=== PATIENT | female | born 1985 | race Caucasian/White ===

== ENCOUNTER → 2017-05-14 | Outpatient (CLI) | payer BC ==
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
== END | disposition home or self-care (01) ==
LOC: RADCTMAIN 15:08
PROVIDERS: ATTEND Family Medicine
DX: M50.30 Other cervical disc degeneration, unspecified cervical region (principal)
CPT/HCPCS: 72125

== ENCOUNTER → 2017-06-02 | Outpatient (CLI) | payer BC ==
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
== END | disposition home or self-care (01) ==
LOC: RADMRIMAIN 18:41
PROVIDERS: ATTEND Family Medicine
DX: M50.222 Other cervical disc displacement at C5-C6 level (principal); M50.322 Other cervical disc degeneration at C5-C6 level; M53.82 Other specified dorsopathies, cervical region; S46.812D Strain of other muscles, fascia and tendons at shoulder and upper arm level, left arm, subsequent encounter
CPT/HCPCS: 72141

== ENCOUNTER 2017-08-18 18:08 | Emergency (ER) | payer BC ==
[2017-08-18 18:47] VITALS: RESP 18
--- NOTE | 2017-08-18 19:38 | ED ---
General Adult HPI - General Chief complaint: Recheck/Abnormal Lab/Rx Stated complaint: POST OP PAIN Time Seen by Provider: 08/18/17 19:11 Source: patient Mode of arrival: ambulatory Limitations: no limitations - History of Present Illness Initial comments: 32-year-old female patient presents to the emergency department today for evaluation of pain postoperatively. Patient states on Wednesday she had a Bartholin's cyst removed from the right side. Patient states that since the surgery she has been having increased pain especially with walking or movement. Patient states that she has had some mild bloody drainage but denies any evidence of pus. Patient denies any fevers, chills, or swelling to the area. States that she has been taking tramadol and applying ice however it is not helping. Patient denies any recent rash, shortness breath, chest pain, abdominal pain, nausea, vomiting, diarrhea, constipation, back pain, numbness, tingling, dizziness, weakness, hematuria, dysuria, urinary urgency, urinary frequency, headache, visual changes, or any other complaints. - Related Data Home Medications Medication Instructions Recorded Confirmed Gabapentin [Neurontin] 300 mg PO DAILY PRN 08/18/17 08/18/17 Ibuprofen [Motrin] 800 mg PO TID PRN 08/18/17 08/18/17 traMADol HCL [Ultram] 50 mg PO BID PRN 08/18/17 08/18/17 Previous Rx's Medication Instructions Recorded Hydrocodone/Acetaminophen [Mcconnell 1 tab PO Q6HR PRN #12 tab 08/18/17 5-325] Allergies Allergy/AdvReac Type Severity Reaction Status Date / Time No Known Allergies Allergy Verified 08/18/17 19:50 Review of Systems ROS Statement: Those systems with pertinent positive or pertinent negative responses have been documented in the HPI. ROS Other: All systems not noted in ROS Statement are negative. Past Medical History Past Medical History: No Reported History History of Any Multi-Drug Resistant Organisms: None Reported Additional Past Surgical History / Comment(s): Herniated disc, two bulging discs , migraines, vaginal cyst removed Past Psychological History: Anxiety, Depression Smoking Status: Never smoker Past Alcohol Use History: None Reported Past Drug Use History: None Reported General Exam Limitations: no limitations General appearance: alert, in no apparent distress, other (Physical well- developed, well-nourished, nontoxic-appearing adult female patient in no acute distress. Vital signs upon presentation are temperature 98.9F, pulse 96, respirations 18, blood pressure 146/63, pulse ox 99% on room air.) Eye exam: Present: normal appearance, PERRL, EOMI. Absent: scleral icterus, conjunctival injection, periorbital swelling ENT exam: Present: normal exam, normal oropharynx, mucous membranes moist Respiratory exam: Present: normal lung sounds bilaterally. Absent: respiratory distress, wheezes, rales, rhonchi, stridor Cardiovascular Exam: Present: regular rate, normal rhythm, normal heart sounds. Absent: systolic murmur, diastolic murmur, rubs, gallop, clicks External exam: Present: other (Patient has well approximated surgical incision on the labia minora. No evidence of swelling, erythema, or drainage of pus.) Neurological exam: Present: alert, oriented X3, CN II-XII intact Psychiatric exam: Present: normal affect, normal mood Skin exam: Present: warm, dry, intact, normal color. Absent: rash Course Vital Signs 08/18/17 08/18/17 18:44 19:55 Temperature 98.9 F 97.8 F Pulse Rate 96 79 Respiratory 18 18 Rate Blood Pressure 146/63 109/54 O2 Sat by Pulse 99 99 Oximetry Medical Decision Making - Medical Decision Making 32-year-old female patient presented to the emergency department today for evaluation of postoperative pain. Surgical incision sites to the right labia minora appears well approximated with no evidence of infection. Patient has no fever. Vital signs are stable. We'll provide her with Mcconnell stronger pain medication help control her symptoms. She is educated to continue applying ice. She is instructed to follow-up with her surgeon as soon as possible. Return parameters discussed in detail. She verbalizes understanding and agrees with this plan. Disposition Clinical Impression: Post-op pain Disposition: HOME SELF-CARE Condition: Good Instructions: Bartholin Cyst (ED) Additional Instructions: Continue applying ice 20 minutes at a time at least 4 times daily. Follow-up with Dr. Anthony as soon as possible. Take pain medicine as directed. Return here immediately for any new, worsening, or concerning symptoms. Prescriptions: Hydrocodone/Acetaminophen [Mcconnell 5-325] 1 tab PO Q6HR PRN #12 tab PRN Reason: Pain Is patient prescribed a controlled substance at d/c from ED?: Yes When asked, does pt state using other controlled substances?: Yes Referrals: Key Atkinson MD [Primary Care Provider] - 1-2 days Shawn Anthony DO [REFERRING] - 1-2 days Time of Disposition: 19:38
[2017-08-18 19:56] VITALS: BP 109/54; PULSE 79; TEMP 97.8
== END 2017-08-18 19:55 | disposition home or self-care (01) ==
LOC: EC 18:08
DX: G89.18 Other acute postprocedural pain (principal)
CPT/HCPCS: 99283

== ENCOUNTER → 2020-03-05 | Outpatient (CLI) | payer BC ==
--- NOTE | 2020-03-05 16:12 | CT ---
EXAMINATION TYPE: CT brain wo con DATE OF EXAM: 03/05/2020 COMPARISON: None HISTORY: hearing loss to left ear CT DLP: 943.[address] of the brain was performed. The ventricles, basal cisterns and sulci overlying the cerebral convexities demonstrate a normal appe arance. There is no evidence for intracranial hemorrhage or sulcal effacement. No mass effects are seen. Osseous calvarium is intact. If symptoms persist consider MRI as clinically warranted. IMPRESSION: 1. No acute intracranial process is seen at this time.
== END | disposition home or self-care (01) ==
LOC: RADCTMAIN 07:32
PROVIDERS: ATTEND Family Medicine
DX: H92.02 Otalgia, left ear (principal); G89.29 Other chronic pain; H91.92 Unspecified hearing loss, left ear
CPT/HCPCS: 70450

== ENCOUNTER → 2020-04-03 | Outpatient (CLI) | payer BC ==
--- NOTE | 2020-04-07 13:05 | MR ---
EXAMINATION TYPE: MR brain and iac wo/w con DATE OF EXAM: 04/03/2020 COMPARISON: CT brain 03/05/2020 HISTORY: Decreased hearing left ear, otalgia TECHNIQUE: Multiplanar, multisequence images of the brain and brainstem, internal auditory canals is performed w ithout and with IV contrast, utilizing 8.5 mL intravenous Gadavist . FINDINGS: Diffusion weighted images demonstrate no evidence of a recent infarct or other diffusion ab normality. There is no extra-axial fluid collection or significant white matter signal abnormality s ome scattered hyperintensities on inversion recovery T2-weighted sequences within the frontal lobes a re noted measuring only 3 to 4 mm, 3-5 lesions are present. The ventricular system and cisternal [facility] are normal in size and appearance. The brain volume is age appropriate. Midline structures demonstrate normal morphology. The craniocervical junction appears within normal limits. Post contrast images demonstrate no abnormal enhancement. The dural venous sinuses appear pa tent. The visualized sinuses are remarkable for some mucoperiosteal thickening in the maxillary sinus es and the globes are intact. IMPRESSION: Nonspecific white matter demyelination of questionable clinical significance, consider hy pertension, migraine headaches, vasculitis, Lyme disease, multiple sclerosis felt to be less likely. No cerebellopontine angle mass or internal auditory canal mass. Mild sinus disease.
== END | disposition home or self-care (01) ==
LOC: RADMRIMAIN 17:08
PROVIDERS: ATTEND Family Medicine
DX: G37.8 Other specified demyelinating diseases of central nervous system (principal); J32.9 Chronic sinusitis, unspecified
CPT/HCPCS: 70553; A9585

== ENCOUNTER → 2020-05-22 | Outpatient (CLI) | payer BC ==
[2020-05-22 14:08] LABS: Basophils # (A) 0.05 X 10*3/uL (0.00-0.10); Basophils % (A) 0.6 %; Eosinophils # (A) 0.17 X 10*3/uL (0.04-0.35); HCT 41.8 % (37.2-46.3); HGB 13.5 g/dL (12.0-15.0); Lymphocytes % (A) 34.3 %; MCH 30.7 pg (27.0-32.0); MCHC 32.3 g/dL (32.0-37.0); Mean Platelet Volume 11.8 fL (9.5-12.2); Monocytes # (A) 0.67 X 10*3/uL (0.20-1.00); Monocytes % (A) 7.9 %; Neutrophils # (A) 4.65 X 10*3/uL (1.80-7.70); Neutrophils % (A) 55.1 %; Platelet Count 226 X 10*3/uL (140-440); RDW 12.3 % (11.5-14.5); WBC 8.45 X 10*3/uL (4.50-10.00)
[2020-05-22 14:58] LABS: ALT 28 U/L (8-44); AST 19 U/L (13-35); African American GFR (CKD) 109.9 (60.0-200.0); Albumin/Globulin Ratio 1.91 (1.60-3.17); Alkaline Phosphatase 77 U/L (41-126); BUN/Creat Ratio 16.25 Ratio (12.00-20.00); C Reactive Protein <0.4 mg/dL (0.0-0.8); Calcium 8.8 mg/dL (8.7-10.3); Carbon Dioxide 30.3 mmol/L (21.6-31.8); Chloride 106 mmol/L (96-109); Globulin 2.3 g/dL (1.6-3.3); Glucose 82 mg/dL (70-110); Non-African American GFR(CKD) 94.8 (60.0-200.0); Potassium 4.2 mmol/L (3.5-5.5); Sodium 141 mmol/L (135-145); Total Bilirubin 0.3 mg/dL (0.3-1.2); Total Protein 6.7 g/dL (6.2-8.2)
[2020-05-22 17:58] LABS: Erythrocyte Sedimentation Rate 11 mm/Hr (0-20)
[2020-05-22 22:39] LABS: Total Protein,CSF 30 mg/dL (12-60)
[2020-05-22 23:22] LABS: Appearance,CSF Clear; CSF Tube Number 4; CSF Tube Volume 4; Nucleated Cells, CSF 0 u/L (0-5); Red Blood Cell,CSF 0 u/L (0-10)
[2020-05-24 11:58] LABS: IgG - CSF 1.7 mg/dL (0.0 - 3.4); IgG/Albumin Index (CSF) 0.53 (0.00 - 0.77)
== END | disposition home or self-care (01) ==
LOC: LABWHC1 08:03
PROVIDERS: ATTEND Psychiatry & Neurology Pain Medicine
DX: H53.8 Other visual disturbances (principal); R90.82 White matter disease, unspecified; R51.9 Headache, unspecified; Z51.81 Encounter for therapeutic drug level monitoring; Z79.899 Other long term (current) drug therapy
CPT/HCPCS: 36415; 80053; 82040; 82042; 82784; 83873; 83916; 84157; 85025; 85652; 86140; 87801; 89050

== ENCOUNTER → 2021-03-24 | Outpatient (CLI) | payer BC ==
[2021-03-25 05:21] LABS: Calcium 9.5 mg/dL (8.7-10.3)
== END | disposition home or self-care (01) ==
LOC: LABWHC1 13:04
PROVIDERS: ATTEND Psychiatry & Neurology Neurology
DX: E55.9 Vitamin D deficiency, unspecified (principal)
CPT/HCPCS: 36415; 82306; 82310; 83970

== ENCOUNTER → 2021-08-27 | Outpatient (CLI) | payer BC, OTHER ==
--- NOTE | 2021-08-27 16:38 | XR ---
EXAMINATION TYPE: XR thoracic spine 2V DATE OF EXAM: 08/27/2021 COMPARISON: None HISTORY: Back pain acute TECHNIQUE: 3 view thoracic spine FINDINGS: There are 12 thoracic type vertebral bodies. The pedicles are intact. Disc heights are pres erved. Vertebral body heights are preserved. Scoliosis in the upper thoracic spine with convexity to the left centered at approximately T2-3. Incidental note is made of a calcification in left upper quadrant may be a splenic artery aneurysm me asuring 2.5 cm. IMPRESSION: 1. Scoliosis upper thoracic spine. 2. Suspected 2.5 cm splenic artery aneurysm.
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
== END | disposition home or self-care (01) ==
LOC: RADXRMAIN 10:26
PROVIDERS: ATTEND Family Medicine
DX: M41.84 Other forms of scoliosis, thoracic region (principal); M54.2 Cervicalgia; M54.50 Low back pain, unspecified; V89.0XXD Person injured in unspecified motor-vehicle accident, nontraffic, subsequent encounter
CPT/HCPCS: 72050; 72070; 72110

== ENCOUNTER → 2021-09-24 | Outpatient (CLI) | payer BC ==
--- NOTE | 2021-09-24 10:42 | CT ---
EXAMINATION TYPE: CT abdomen wo con DATE OF EXAM: 09/24/2021 COMPARISON: X-ray dated 08/27/2021 HISTORY: Aneurysm of other specified arteries CT DLP: 331.4 mGycm Automated exposure control for dose reduction was used. TECHNIQUE: Helical acquisition of images was performed from the lung bases through the top of iliac crest to include entire abdomen. CONTRAST: Performed without Oral Contrast and without IV contrast. FINDINGS: LUNG BASES: Left basal subsegmental pulmonary atelectasis. LIVER/GB: Arterial segment 4A cyst measuring 2.6 cm. Another cyst is seen more inferiorly, suboptimal ly assessed by this nonenhanced CT scan. Grossly unremarkable gallbladder. PANCREAS: No significant abnormality is seen. SPLEEN: Marginally calcified cyst measuring 2.6 cm in the upper pole of the spleen, likely representi ng the abnormality identified on the previous x-ray. No other definite splenic lesion by this unenhan jody CT scan. ADRENALS: No significant abnormality is seen. KIDNEYS: 3 tiny calculi seen at the lower half of the left kidney measuring up to 3 mm. Unremarkable kidneys otherwise. BOWEL: Unremarkable stomach, duodenum and visualized small and large bowel. LYMPH NODES: No pathologically enlarged abdominal lymph nodes. OSSEOUS STRUCTURES: No significant abnormality is seen. FREE AIR: No free air is visualized. OTHER: Fat-containing umbilical hernia. IMPRESSION: Marginally calcified cyst at the superior aspect of the spleen as described above, incompletely blossom cterized by this unenhanced CT scan. Marginally calcified intrasplenic aneurysm is unlikely. Recommen d further enhanced/CTA of the spleen versus ultrasound confirmation. Other incidental findings as jean claude cribed above.
== END | disposition home or self-care (01) ==
LOC: RADCTMAIN 07:56
PROVIDERS: ATTEND Family Medicine
DX: I72.8 Aneurysm of other specified arteries (principal); D73.4 Cyst of spleen
CPT/HCPCS: 74150

== ENCOUNTER → 2021-10-15 | Outpatient (CLI) | payer BC ==
--- NOTE | 2021-10-15 12:27 | CT ---
EXAMINATION TYPE: CT abdomen w con CT DLP: 843.3 mGycm, Automated exposure control for dose reduction was used. DATE OF EXAM: 10/15/2021 11:44 AM COMPARISON: CT abdomen pelvis most recent from 09/24/2021 . CLINICAL INDICATION:Female, 36 years old with history of K76.89 liver cyst; Liver Cyst TECHNIQUE: Standard CT of the abdomen following the administration of 100 cc of Isovue 300 IV contr ast material. Coronal and sagittal reformats were performed. FINDINGS: LOWER CHEST: Posterior dependent subsegmental atelectasis is noted. ABDOMEN LIVER: Unchanged hepatic cysts measuring 2.0 x 2.9 cm and 26 Hounsfield units. GALLBLADDER AND BILE DUCTS: Unremarkable. PANCREAS: Peripherally calcified cyst within the spleen is redemonstrated. Not significantly changed measuring up to 2.6 cm. SPLEEN: Unremarkable. ADRENAL GLANDS: Unremarkable. KIDNEYS AND URETERS: No evidence of hydronephrosis or renal calculus. The ureters are unremarkable. ABDOMEN & PELVIS STOMACH AND BOWEL: No evidence of bowel obstruction. PERITONEUM: No evidence of pneumoperitoneum or free fluid. VASCULATURE: No evidence of aortic aneurysm. MUSCULOSKELETAL: No acute osseous abnormalities LYMPH NODES: No gross evidence for lymphadenopathy. SOFT TISSUE/ABDOMINAL WALL: Fat filled umbilical hernia measuring 0.8 cm at the neck. IMPRESSION: 1. Stable right hepatic segment 4A cyst with higher Hounsfield units likely representing proteinaceou s cyst. This can be confirmed with MRI and/or ultrasound. 2. Peripherally calcified splenic lesion likely representing pseudocyst. This could be evaluated on a forementioned MRI for liver cyst.
== END | disposition home or self-care (01) ==
LOC: RADCTMAIN 10:44
PROVIDERS: ATTEND Family Medicine
DX: K76.89 Other specified diseases of liver (principal); D73.4 Cyst of spleen; N28.1 Cyst of kidney, acquired
CPT/HCPCS: 74160; Q9967

== ENCOUNTER → 2022-03-02 | Outpatient (CLI) | payer BC ==
--- NOTE | 2022-03-03 04:34 | MR ---
EXAMINATION TYPE: MR abdomen wo/w con DATE OF EXAM: 03/02/2022 COMPARISON: CT scan 10/15/2021 HISTORY: Abdominal pain. CONTRAST: Standard multiplanar, multisequence MRI departmental protocol images were obtained without contrast a nd with 10 mL intravenous Gadavist gadolinium contrast. Multiplanar multiecho imaging of the abdomen performed without and with the IV contrast. There is an irregular 3 cm cyst in the superior right lobe of the liver. The bile ducts are not dilat ed. Gallbladder appears normal. There is 1.5 cm cyst in the anterior right lobe of the liver. There i s rounded mixed signal lesion in the splenic could be calcifying cyst. This measures 2.5 cm. Stomach is intact. There is no evidence of pancreatic mass. The pancreatic duct is not dilated. There is no adrenal mass. Kidneys have normal size. No hydronephrosis. No retroperitoneal adenopathy. There is no ascites. No sign of a bowel obstruction. The contrast images show no pathologic enhancem ent. There is normal enhancement of the portal venous system. The lung bases show no sign of pleural effusion. There is no sign of pericardial effusion. Lumbar spi ne is intact. IMPRESSION: Small simple hepatic cysts. These appear unchanged compared to the CT scan of 10/15/2021. No suspicious liver lesion. Calcifying cyst in the spleen unchanged compared to old CT scan. No dilated ducts.
== END | disposition home or self-care (01) ==
LOC: RADMRIMAIN 21:30
PROVIDERS: ATTEND Family Medicine
DX: D73.4 Cyst of spleen (principal); K76.89 Other specified diseases of liver
CPT/HCPCS: 74183; A9585

== ENCOUNTER → 2023-11-08 | Outpatient (CLI) | payer BC ==
[2023-11-08 17:18] LABS: Basophils # (A) 0.05 X 10*3/uL (0.00-0.10); Basophils % (A) 0.6 %; Eosinophils # (A) 0.15 X 10*3/uL (0.04-0.35); Eosinophils % (A) 1.9 %; HCT 41.8 % (37.2-46.3); HGB 13.5 g/dL (12.0-15.0); Lymphocytes # (A) 2.41 X 10*3/uL (0.90-5.00); MCH 31.3 pg (27.0-32.0); MCHC 32.3 g/dL (32.0-37.0); MCV 96.8 FL (80.0-97.0); Mean Platelet Volume 12.2 FL (9.5-12.2); Monocytes # (A) 0.67 X 10*3/uL (0.20-1.00); Monocytes % (A) 8.4 %; NRBC Per 100 WBC 0 X 10*3/uL (0.00-0.01); Neutrophils # (A) 4.72 X 10*3/uL (1.80-7.70); Neutrophils % (A) 58.9 %; Platelet Count 178 X 10*3/uL (140-440); RBC 4.32 X 10*6/uL (4.10-5.20); RDW 12.9 % (11.5-14.5); WBC 8.02 X 10*3/uL (4.50-10.00)
[2023-11-08 17:33] LABS: ALT 29 U/L (8-44); AST 19 U/L (13-35); Albumin 4.1 g/dL (3.8-4.9); Albumin/Globulin Ratio 1.58 Ratio (1.60-3.17); Alkaline Phosphatase 90 U/L (41-126); Blood Urea Nitrogen 13.6 mg/dL (9.0-27.0); Calcium 9.4 mg/dL (8.7-10.3); Carbon Dioxide 27.8 mmol/L (21.6-31.8); Chloride 105 mmol/L (96-109); Globulin 2.6 g/dL (1.6-3.3); Glucose 87 mg/dL (70-110); Potassium 4.5 mmol/L (3.5-5.5); Sodium 142 mmol/L (135-145); Total Bilirubin 0.3 mg/dL (0.3-1.2); Total Protein 6.7 g/dL (6.2-8.2)
[2023-11-08 19:55] LABS: EBV-EA (IgG) 0.2 AI; EBV-EBNA(IgG) >8.0; EBV-VCA (IgG) >8.0 AI; EBV-VCA (IgM) <0.2 AI
== END | disposition home or self-care (01) ==
LOC: LABWHC1 09:12
PROVIDERS: ATTEND Nurse Practitioner Family
DX: J02.9 Acute pharyngitis, unspecified (principal)
CPT/HCPCS: 36415; 80053; 85025; 86663; 86664; 86665

== ENCOUNTER 2023-12-29 12:04 | Day surgery (SDC) | payer BC ==
[2023-12-29] MEDS: IV FLUID CONTINUATION 1,000 ML IV ONE (13:00)
[2023-12-29 13:12] VITALS: TEMP 97.8
[2023-12-29] MEDS: LACTATED RINGERS 1,000 ML IV SCH (13:14)
[2023-12-29] MEDS ORDERED: LIDOCAINE 2% (PF) 20 MG/ML 5 ML VIAL ONE (13:24)
[2023-12-29] MEDS ORDERED: PROPOFOL 10 MG/ML 20 ML VIAL IV ONE (13:24)
--- NOTE | 2023-12-29 13:40 | P.PCN ---
Date of Procedure: 12/29/23 Procedure(s) Performed: BRIEF HISTORY: Patient is a 38-year-old, pleasant, white female as a part evaluation of lungs and history of GERD and throat irritation. Presently on Pepcid 20 mg twice daily with some help.. PROCEDURE PERFORMED: Esophagogastroduodenoscopy with biopsy. PREOPERATIVE DIAGNOSIS: History of GERD/throat irritation. IV sedation per anesthesia. PROCEDURE: After informed consent was obtained, the patient was brought into the endoscopy unit. IV sedation was administered by Anesthesia under continuous monitoring. Initially the Olympus GIF-140 video endoscope was inserted into the mouth. Esophagus intubated without any difficulty. It was gradually advanced into the stomach and duodenum and carefully examined. The bulb and the second part of the duodenum appeared normal. The scope at this time was withdrawn to the stomach, adequately insufflated with air, and upon careful examination, mucosa of the antrum, body, had linear areas of erythema consistent with gastritis and biopsies were done from this area. Mucosa of the cardia and the fundus appeared normal. The scope was then withdrawn into the esophagus. The GE junction was located at 39 cm from the incisors. There were 2 superficial erosions and 1 superficial ulceration in the distal esophagus consistent with LA grade C reflux esophagitis. Rest of the esophagus appeared normal and the patient tolerated procedure well. IMPRESSION: 1. Mild antral gastritis. 2. 2 superficial erosions and 1 superficial ulceration at the GE junction consistent with LA grade C reflux esophagitis. RECOMMENDATIONS: The findings of this examination were discussed with the patient as well as her family. She was advised to follow-up with the biopsy results.. In the meantime advised to stop Pepcid and will give her a trial of omeprazole 40 mg daily and was educated about antireflux measures.
[2023-12-29 14:05] VITALS: BP 139/85; PULSE 69; RESP 16
== END 2023-12-29 14:29 | disposition home or self-care (01) ==
LOC: ORWHC2ENDO 12:04
PROVIDERS: ATTEND Internal Medicine Gastroenterology
DX: K31.9 Disease of stomach and duodenum, unspecified (principal); K21.9 Gastro-esophageal reflux disease without esophagitis; K25.9 Gastric ulcer, unspecified as acute or chronic, without hemorrhage or perforation; G43.909 Migraine, unspecified, not intractable, without status migrainosus; F41.8 Other specified anxiety disorders; F12.90 Cannabis use, unspecified, uncomplicated; Z87.891 Personal history of nicotine dependence; Z79.899 Other long term (current) drug therapy
CPT/HCPCS: 81025; 88305; 43239; J2704; J2001

== ENCOUNTER → 2024-05-15 | Outpatient (CLI) | payer BC ==
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
== END | disposition home or self-care (01) ==
LOC: RADMRIMAIN 13:03
PROVIDERS: ATTEND Family Medicine
DX: G43.909 Migraine, unspecified, not intractable, without status migrainosus (principal); R90.82 White matter disease, unspecified
CPT/HCPCS: 70551